=== PATIENT | male | born 1935 | race Caucasian/White ===

== ENCOUNTER → 2020-07-23 | Outpatient (CLI) | payer MEDICARE ==
[~2020-07-23] MED LIST: ACET600C6 PO; APIX2.5T PO; ASCO100018 PO; BRIM5DRO3 LEFTEYE; CHOL10003 PO; DORZ10DR27 LEFTEYE; FLUO60SO2 EACH EAR; GLUC-104 PO; GLUC15006 PO; LATA7.5D RIGHTEYE; LOVA20TA2 PO; OMNIPAQUE 350 MG/ML, 150 ML BOTTLE ONE; TRAV2.5D5 EACHEYE; UBID200C33 PO
== END | disposition home or self-care (01) ==
LOC: CFH 13:26
PROVIDERS: ATTEND Internal Medicine Cardiovascular Disease
DX: I48.91 Unspecified atrial fibrillation (principal); K44.9 Diaphragmatic hernia without obstruction or gangrene; M47.814 Spondylosis without myelopathy or radiculopathy, thoracic region; I26.99 Other pulmonary embolism without acute cor pulmonale; R94.31 Abnormal electrocardiogram [ECG] [EKG]; R06.00 Dyspnea, unspecified; Z95.0 Presence of cardiac pacemaker
CPT/HCPCS: 71046; 75572; 82565; Q9967

== ENCOUNTER 2020-07-25 06:16 | Observation (INO) | payer MEDICARE ==
[~2020-07-25] VITALS: Ht 177.8 cm; Wt 84.1 kg
[~2020-07-25 06:16] MED LIST changes: -ACET600C6 PO; -APIX2.5T PO; -BRIM5DRO3 LEFTEYE; -CHOL10003 PO; -DORZ10DR27 LEFTEYE; -LATA7.5D RIGHTEYE; -OMNIPAQUE 350 MG/ML, 150 ML BOTTLE ONE
[2020-07-25] MEDS ORDERED: SODIUM CHLORIDE 0.9% 1,000 ML IV ONE (07:00)
[2020-07-25] MEDS ORDERED: SODIUM CHLORIDE 0.9% 1,000 ML IV SCH (07:00)
[2020-07-25 07:22] LABS: BASOPHILS % (AUTO) 1 % (0-1); EOSINOPHILS % (AUTO) 5 % (1-7); LYMPHOCYTES % (AUTO) 28 % (22-44); MEAN CORPUSCULAR HEMOGLOBIN 31.6 pg (27.5-34.5); MEAN PLATELET VOLUME 7.7 fL (7.4-10.4); MONOCYTES % (AUTO) 12 % (2-9); NEUTROPHILS % (AUTO) 53 % (42-75); PLATELET COUNT 202 x10^3/uL (130-400); RED BLOOD COUNT 4.56 x10^6/uL (4.38-5.82); RED CELL DISTRIBUTION WIDTH 13.9 % (9.4-14.8)
[2020-07-25] MEDS ORDERED: CHOL10003 PO (07:24)
[2020-07-25] MEDS ORDERED: DORZ10DR27 LEFTEYE (07:24)
[2020-07-25] MEDS ORDERED: BRIM5DRO3 LEFTEYE (07:24)
[2020-07-25] MEDS ORDERED: ACET600C6 PO (07:24)
[2020-07-25] MEDS ORDERED: LATA7.5D RIGHTEYE (07:24)
[2020-07-25] MEDS ORDERED: APIX2.5T PO (07:24)
[2020-07-25 07:25] VITALS: BP 135/80
[2020-07-25 07:29] LABS: INTERNATIONAL NORMALIZED RATIO 1.11 (0.93-1.1); PROTHROMBIN TIME 11.9 Seconds (9.6-11.5)
[2020-07-25 07:30] LABS: ALANINE AMINOTRANSFERASE 29 U/L (12-78); ALBUMIN 3.7 g/dL (3.4-5.0); ANION GAP 8 mmol/L (5-15); CALCIUM 8.6 mg/dL (8.5-10.1); CHLORIDE 115 mmol/L (98-107); CREATININE 1.87 mg/dL (0.7-1.3)
[2020-07-25 07:40] LABS: ALKALINE PHOSPHATASE 46 U/L (45-117); BILIRUBIN,TOTAL 0.7 mg/dL (0.2-1.0); TOTAL PROTEIN 7.1 g/dL (6.4-8.2)
[2020-07-25] MEDS ORDERED: LIDOCAINE 1%, 20ML ONE (07:46)
[2020-07-25] MEDS ORDERED: PROPOFOL 10 MG/ML, 20ML ONE (08:15)
[2020-07-25] MEDS ORDERED: ROCURONIUM 10 MG/ML,10ML ONE (08:15)
[2020-07-25] MEDS ORDERED: DEXAMETHASONE 4 MG/ML, 1ML ONE (08:15)
[2020-07-25] MEDS ORDERED: FENTANYL PF 250 MCG/5ML ONE (08:19)
[2020-07-25] MEDS ORDERED: EPHEDRINE 50 MG/ML, 1ML ONE (08:24)
[2020-07-25] MEDS ORDERED: CEFAZOLIN 1,000 MG ONE ×2 (08:45)
[2020-07-25] MEDS ORDERED: HEPARIN 1,000 UNITS/ML, 10ML ONE ×3 (09:55)
[2020-07-25] MEDS ORDERED: NEOSTIGMINE 1 MG/ML, 10ML ONE (11:21)
[2020-07-25] MEDS ORDERED: GLYCOPYRROLATE 0.2MG/1ML, 5ML ONE (11:22)
[2020-07-25] MEDS ORDERED: ONDANSETRON 2MG/ML, 2ML IVPush PRN ×2 (11:30→12:00)
[2020-07-25] MEDS ORDERED: APIXABAN 2.5 MG TABLET PO SCH (11:30)
[2020-07-25] MEDS ORDERED: ZOLPIDEM 5MG TABLET PO PRN (11:30)
[2020-07-25] MEDS ORDERED: ACETAMINOPHEN 325 MG TABLET PO PRN ×2 (11:30→12:00)
[2020-07-25] MEDS ORDERED: HYDROmorphone 1 MG/ML, 1ML INJ IVPush PRN (12:00)
[2020-07-25] MEDS ORDERED: hydrALAzine 20 MG/ML, 1ML IV PRN (12:00)
[2020-07-25] MEDS ORDERED: PROMETHAZINE 12.5 MG SUPP PR PRN (12:00)
[2020-07-25] MEDS ORDERED: OXYcodone 5 MG/5 ML ORAL.SOL UDC PO PRN (12:00)
[2020-07-25] MEDS ORDERED: FENTANYL PF 100 MCG/2ML IV PRN (12:00)
[2020-07-25] MEDS ORDERED: EPHEDRINE 50 MG/ML, 1ML IVPush PRN (12:00)
[2020-07-25] MEDS ORDERED: MIDAZOLAM 1 MG/ML, 2ML IV PRN (12:00)
[2020-07-25] MEDS ORDERED: MEPERIDINE/PF 25MG/0.5ML IVPush PRN (12:00)
[2020-07-25] MEDS ORDERED: ALBUTEROL SULFATE 2.5 MG/3 ML NPPB PRN (12:00)
[2020-07-25] MEDS ORDERED: LABETALOL 5MG/ML, 20ML IV PRN (12:00)
[2020-07-25] MEDS ORDERED: PROMETHAZINE 25 MG/ML, 1ML IVPush PRN (12:00)
[2020-07-25] MEDS ORDERED: DIAZEPAM 5 MG/ML, 2ML IVPush PRN (12:00)
[2020-07-25] MEDS ORDERED: DIPHENHYDRAMINE 50 MG/ML, 1ML IVPush PRN ×2 (12:00)
[2020-07-25] MEDS ORDERED: APIXABAN 5 MG TABLET ONE (12:16)
[2020-07-25] MEDS ORDERED: APIXABAN 2.5 MG TABLET PO ONE (13:00)
[2020-07-25] MEDS: TEMPLATE NON-FORMULARY MED. (Brimonidine Tartrate** (Alphagan P**) 1 DROP(S)) LEFTEYE SCH ×2 (13:00→20:07)
[2020-07-25 14:20] VITALS: BP 117/72
[2020-07-25] MEDS: FLECAINIDE 50MG TABLET PO SCH (14:20)
[2020-07-25 19:43] VITALS: BP 115/68
[2020-07-25] MEDS: APIXABAN 5 MG TABLET PO SCH (20:05)
[2020-07-25] MEDS: COLCHICINE 0.6 MG CAPSULE PO SCH (20:06)
[2020-07-25] MEDS ORDERED: LOVASTATIN 20 MG TABLET PO SCH (21:00)
[2020-07-26 00:55] VITALS: BP 122/66
[2020-07-26] MEDS: FLECAINIDE 50MG TABLET PO SCH (02:54)
[2020-07-26] MEDS: TEMPLATE NON-FORMULARY MED. (Brimonidine Tartrate** (Alphagan P**) 1 DROP(S)) LEFTEYE SCH (05:14)
[2020-07-26 07:50] VITALS: BP 114/73
[2020-07-26] MEDS ORDERED: LATANOPROST OPHTH 0.005%, 2.5ML RIGHTEYE SCH (09:00)
[2020-07-26] MEDS ORDERED: ASCORBIC ACID 500 MG TABLET PO SCH (09:00)
[2020-07-26] MEDS ORDERED: CHOLECALCIFEROL 1,000 UNIT TABLET PO SCH (09:00)
[2020-07-26] MEDS ORDERED: UBIDECARENONE 300 MG PO SCH (09:00)
[2020-07-26] MEDS ORDERED: TEMPLATE NON-FORMULARY MED. (Glucosamine Hcl** 1,500 MG) PO SCH (09:00)
[2020-07-26] MEDS ORDERED: DORZOLAMIDE OPHTH 2%, 10ML LEFTEYE SCH (09:00)
[2020-07-26] MEDS ORDERED: ACETYLCYSTEINE 600 MG CAPSULE PO SCH (09:00)
[2020-07-26] MEDS ORDERED: FLEC50TA25 PO (09:27)
[2020-07-26] MEDS: COLCHICINE 0.6 MG CAPSULE PO SCH (09:30)
[2020-07-26] MEDS: APIXABAN 5 MG TABLET PO SCH (09:33)
== END 2020-07-26 10:47 | disposition home or self-care (01) ==
LOC: CACL 06:16 → ORIP 11:30 → 5SO 13:21 → DCLOUNGE 07-26 10:35
PROVIDERS: ADMIT Internal Medicine Cardiovascular Disease; ATTEND Internal Medicine Cardiovascular Disease
DX: I48.91 Unspecified atrial fibrillation (principal); Z20.822 Contact with and (suspected) exposure to COVID-19; I48.4 Atypical atrial flutter; Z79.01 Long term (current) use of anticoagulants; Z79.899 Other long term (current) drug therapy
CPT/HCPCS: 36415; 80053; 84443; 85025; 85347; 85610; 85730; 93005; 93306; 93312; 93321; 93325; 93613; 93655; 93656; 93657; 93662; C1730; C1732; C1759; C1766; C1893; C1894; G0378; J0690; J1100; J1644; J2704; J2710; J3010; J3490; U0005; U0003